=== PATIENT | male | born 1995 | race African-American/Black ===

== ENCOUNTER 2016-11-06 20:47 | Emergency (ER) | payer MEDICAID, OTHER ==
[~2016-11-06] VITALS: Ht 177.8 cm; Wt 122.5 kg
[~2016-11-06 20:47] MED LIST: IBUPROFEN800 MG ORAL; NAPROSYN500 M1 PO; NEOSPORIN ANT14.2 GM TP; NKM
[2016-11-06 21:15] VITALS: BP 131/82
[2016-11-06] MEDS ORDERED: AZITHROMYCIN250 MG ORAL (21:15)
[2016-11-06] MEDS ORDERED: NEXAFED30 MG ORAL (21:15)
--- NOTE | 2016-11-06 21:15 | Emergency Room Report ---
History of Present Illness General Chief Complaint: Sore Throat Source: Patient Present Illness HPI Is a 21-year-old male with no past history. He presents with chief complaint of sore throat and ear pain. Has been ongoing for the last week. Fever initially. Also with congestion. No cough. Pain is 7/10. Worse with swallowing. Allergies: Coded Allergies: No Known Allergies (Unverified , 04/03/14) Patient History Past Medical History: none, see triage record, old chart reviewed Past Surgical History: none Pertinent Family History: none Social History: Denies: drug use Immunizations: other Reviewed Nursing Documentation: PMH: Agreed, PSxH: Agreed Nursing Documentation-PMH Past Medical History: No Stated History Review of Systems Eye: Denies: blurred vision, eye pain ENT: Reports: ear pain, nose congestion, throat pain, throat swelling Respiratory: Denies: cough, shortness of breath Cardiovascular: Denies: chest pain, palpitations Gastrointestinal: Denies: abdominal pain, diarrhea, nausea, vomiting Musculoskeletal: Denies: back pain, joint pain Skin: Denies: rash Neurological: Denies: headache, numbness Endocrine: Denies: increased thirst, increased urine Hematologic/Lymphatic: Denies: easy bruising All Other Systems: negative except mentioned in HPI Physical Exam Vital Signs Date Time Temp Pulse Resp B/P Pulse Ox O2 Delivery O2 Flow Rate FiO2 11/06/16 20:57 99.7 79 18 131/82 96 Room Air vitals with low-grade fever Sp02 EP Interpretation: reviewed, normal General Appearance: well appearing, no apparent distress, alert Head: normocephalic, atraumatic Eyes: bilateral eye EOMI, bilateral eye PERRL ENT: hearing grossly normal, uvula midline - Uvula enlarged, tonsillar swelling , pharyngeal erythema, tonsillar exudate, other - Right TM is dull with effusion Neck: full range of motion, supple, no meningismus Respiratory: chest non-tender, lungs clear, normal breath sounds Cardiovascular #1: regular rate, rhythm, no murmur Gastrointestinal: normal bowel sounds, non tender, no mass, no organomegaly, no bruit, non-distended Musculoskeletal: back normal, gait/station normal, normal range of motion Psychiatric: mood/affect normal Skin: warm/dry Medical Decision Making Diagnostic Impression: Primary Impression: Pharyngitis, acute Qualified Codes: J02.9 - Acute pharyngitis, unspecified Additional Impression: Right otitis media with effusion ER Course Is presents with sore throat. This initially he probably started as a viral illness now complicated by right otitis media. We'll put him on antibiotics. No evidence of sepsis, peritonsillar abscess, retropharyngeal abscess or Adi angina. We'll discharge him. Last Vital Signs Date Time Temp Pulse Resp B/P Pulse Ox O2 Delivery O2 Flow Rate FiO2 11/06/16 20:57 99.7 79 18 131/82 96 Room Air Status: improved Disposition: HOME, SELF-CARE Condition: Stable Scripts Azithromycin* (ZITHROMAX*) 250 Mg Tablet 250 MG ORAL DAILY, #6 TAB 0 Refills Take two tablets by mouth today, then take one tablet by mouth daily for four days Prov: NEVA HUTCHISON M.D. 11/06/16 Pseudoephedrine Hcl* (NEXAFED*) 30 Mg Tablet 60 MG ORAL Q6H Y for congestion, #30 TAB Prov: NEVA HUTCHISON M.D. 11/06/16 Patient Instructions: Tonsillitis Additional Instructions: Followup with your Dr. in 3-5 days. Return if symptom worsen. NEVA HUTCHISON M.D. November 06, 2016 21:15
[2016-11-06 21:21] VITALS: BP 131/82
== END 2016-11-06 21:21 | disposition home or self-care (01) ==
LOC: EMR 21:04
DX: J02.9 Acute pharyngitis, unspecified (principal); H66.91 Otitis media, unspecified, right ear
CPT/HCPCS: 99284

== ENCOUNTER 2019-05-07 19:24 | Emergency (ER) | payer OTHER ==
[~2019-05-07] VITALS: Ht 175.3 cm; Wt 120.2 kg
[~2019-05-07 19:24] MED LIST changes: +AZITHROMYCIN250 MG ORAL; +NEXAFED30 MG ORAL
--- NOTE | 2019-05-07 19:59 | NUR ---
ER Nurse Note: Pt ambulated c/o dry cough without mucus production, nasal congestion, and chest pain with cough since 05/06. No fever; lung sounds clear. Will continue to montior.
[2019-05-07 20:00] VITALS: BP 128/81
--- NOTE | 2019-05-07 20:21 | Emergency Room Report ---
History of Present Illness General Chief Complaint: Upper Respiratory Illness Source: Patient Present Illness HPI 23 YO Male presents to the ED C/O 02/02 in severity persistent painful dry cough with wheezing and sore throat x 2 days. Pt. reports fevers and chills yesterday. Pt. denies mucus production. He reports red eyes, denies visual changes, photophobia or increased lacrimation. He denies eye pain. He reports some mild ST pain exacerbation with swallowing. He states his cough is his primary symptom and is keeping him up at night. He reports sharp pain on the right side of the ribs when coughing. He denies recent travel, calf pain, LE swelling, Palpitations, Dizziness, MUJ[place], neck pain /stiffness, or hemoptysis. He denies significant past medical history and denies smoking or history of asthma/ COPD. He denies cardiac history. He reports his girlfriend has similar symptoms. Allergies: Coded Allergies: No Known Allergies (Unverified , 04/03/14) Patient History Past Medical History: see triage record Past Surgical History: none Pertinent Family History: none Reviewed Nursing Documentation: PMH: Agreed; PSxH: Agreed Nursing Documentation-PMH Past Medical History: No Stated History Review of Systems All Other Systems: negative except mentioned in HPI Physical Exam Vital Signs Date Time Temp Pulse Resp B/P (MAP) Pulse Ox O2 Delivery O2 Flow Rate FiO2 05/07/19 19:28 99.3 105 18 128/81 (97) 96 Room Air Sp02 EP Interpretation: reviewed, normal General Appearance: no apparent distress, alert, GCS 15, non-toxic Head: normocephalic, atraumatic Eyes: bilateral eye normal inspection, bilateral eye PERRL ENT: hearing grossly normal, normal voice Neck: full range of motion, no meningismus, no bony tend Respiratory: chest non-tender, lungs clear, normal breath sounds, no respiratory distress, no accessory muscle use, speaking full sentences, wheezing - scant wheezes diffusely on exhalation Cardiovascular #1: regular rate, rhythm, no edema, normal capillary refill Musculoskeletal: gait/station normal, normal range of motion, non-tender Neurologic: alert, oriented x3, responsive, motor strength/tone normal, sensory intact, normal gait, speech normal, grossly normal Psychiatric: judgement/insight normal Skin: no rash, normal color Lymphatic: no adenopathy Medical Decision Making PA Attestation Dr. Velazco is my supervising Physician whom patient management has been discussed with. Diagnostic Impression: Primary Impression: Bronchitis ER Course 23 YO Male presents to the ED C/O 02/02 in severity persistent painful dry cough with wheezing and sore throat x 2 days. Pt. reports fevers and chills yesterday. Pt. denies mucus production. He reports red eyes, denies visual changes, photophobia or increased lacrimation. He denies eye pain. He reports some mild ST pain exacerbation with swallowing. He states his cough is his primary symptom and is keeping him up at night. He reports sharp pain on the right side of the ribs when coughing. He denies recent travel, calf pain, LE swelling, Palpitations, Dizziness, MUJICA, neck pain /stiffness, or hemoptysis. He denies significant past medical history and denies smoking or history of asthma/ COPD. He denies cardiac history. He reports his girlfriend has similar symptoms. Ddx considered but are not limited to URI, pneumonia, PE, strep pharyngitis, meningitis. Vital signs: mild tachycardic 105 and temp of 99.5, normal oxygen saturation. H&PE are most consistent with bronchitis--I do not suspect acute cardiac etiology of this patient has no significant risk factors and no personal or familial history of cardiac disease. ORDERS: none required at this time, the diagnosis is clinical ED INTERVENTIONS: -Albuterol Nebs. DISCHARGE: At this time pt. is stable for d/c to home. Will provide printed patient care instructions, and any necessary prescriptions. Care plan and follow up instructions have been discussed with the patient prior to discharge. Last Vital Signs Date Time Temp Pulse Resp B/P (MAP) Pulse Ox O2 Delivery O2 Flow Rate FiO2 05/07/19 20:00 99.3 100 18 128/81 96 Room Air Disposition: HOME, SELF-CARE Condition: Stable Scripts Ibuprofen* (MOTRIN*) 600 Mg Tablet 600 MG ORAL THREE TIMES A DAY, #30 TAB 0 Refills Prov: Sarina Greenberg 05/07/19 Benzonatate* (TESSALON PERLE*) 100 Mg Capsule 100 MG ORAL THREE TIMES A DAY for cough, #30 PERLE Prov: Sarina Greenberg 05/07/19 Albuterol Sulfate* (ALBUTEROL SULFATE MDI*) 8.5 Gm Hfa.aer.ad 2 PUFF INH Q4H, #1 INH 0 Refills Prov: Sarina Greenberg 05/07/19 Codeine/Promethazine Hcl* (PROMETHAZINE-CODEINE SYRUP*) 118 Ml Syrup 5 ML ORAL Q6H PRN for For Cough, #120 ML 0 Refills Prov: Sarina Greenberg 05/07/19 Referrals: MATTHEW FELDMAN,REFERRING (PCP) Patient Instructions: Acute Bronchitis, [id number] Additional Instructions: Take medications as directed. Follow up with a Primary Care Provider in 3-5 days, even if your symptoms have resolved. --Please review list of primary care clinics, if you do not already have a primary care provider Return sooner to ED if new symptoms occur, or current symptoms become worse. Do not drink alcohol, drive, or operate heavy machinery while taking Cough Syrup as this may cause drowsiness. - Please note that this Emergency Department Report was dictated using [employer] bookkeeper technology software, occasionally this can lead to erroneous entry secondary to interpretation by the dictation equipment. Sarina Greenberg May 07, 2019 20:21
--- NOTE | 2019-05-07 20:35 | NUR ---
ED Nurse Note: PT RECEIVING BREATHING TX AT BEDSIDE
[2019-05-07] MEDS: Albuterol ud Inhalation HHN ONE ×2 (20:37→20:38)
[2019-05-07] MEDS ORDERED: IBUPROFEN600 MG ORAL (20:43)
[2019-05-07] MEDS ORDERED: PROMETHAZINE-C118 M1 ORAL (20:43)
[2019-05-07] MEDS ORDERED: ALBUTEROL SULF8.5 GM INH (20:43)
[2019-05-07] MEDS ORDERED: TESSALON PERLE100 MG ORAL (20:43)
[2019-05-07 20:51] VITALS: BP 130/80
--- NOTE | 2019-05-07 20:51 | NUR ---
ER DISCHARGE NOTE: Patient is cleared to be discharged per ERMD, pt is aox4, on room air, with stable vital signs. pt was given dc and prescription instructions, pt was able to verbalize understanding, pt id band removed without complications. pt is able to ambulate with steady gait. pt took all belongings.
== END 2019-05-07 20:51 | disposition home or self-care (01) ==
LOC: EMR 19:45
DX: J20.9 Acute bronchitis, unspecified (principal); R07.89 Other chest pain; R00.0 Tachycardia, unspecified
CPT/HCPCS: 94640; 94664; Z7502; 99284

== ENCOUNTER 2020-05-06 19:10 | Emergency (ER) | payer OTHER ==
[~2020-05-06] VITALS: Ht 175.3 cm; Wt 114.3 kg
[~2020-05-06 19:10] MED LIST changes: +ALBUTEROL SULF8.5 GM INH; +IBUPROFEN600 MG ORAL; +PROMETHAZINE-C118 M1 ORAL; +TESSALON PERLE100 MG ORAL
[2020-05-06] MEDS ORDERED: Penicillin Vk 250mg tab ORAL ONE (19:30)
[2020-05-06] MEDS ORDERED: Lidocaine 2% Visc 15ml soln ORAL ONE (19:30)
[2020-05-06] MEDS ORDERED: PENICILLIN V P500 MG PO (19:31)
[2020-05-06] MEDS ORDERED: IBUPROFEN600 M1 ORAL (19:31)
[2020-05-06] MEDS ORDERED: DEXAMETHASONE2 MG PO (19:32)
--- NOTE | 2020-05-06 19:35 | NUR ---
ED Nurse Note: Recieved pt on [facility] awake, alert and oriented x 4, pt herre with c/o sore throat, pt states he has hx of needing tonsils removed but did not f/u, pt denies fevers but states pain is radiating to left ear, pain at 5/10, denies cp or sob or any other complaints or discomforts.
--- NOTE | 2020-05-06 19:40 | Emergency Room Report ---
History of Present Illness General Chief Complaint: Sore Throat Source: Patient Present Illness HPI Patient is a 24-year-old male past medical history of tonsillitis in the past who presents to the ER complaining of throat pain for 2 days. Patient states that it is painful to swallow. He states that he is not drooling and does not have changes to his voice. Patient denies any neck stiffness or rash. He de nies any chest pain or shortness of breath. He denies any cough. He complains of some discomfort to his right ear. Allergies: Coded Allergies: No Known Allergies (Unverified , 04/03/14) COVID-19 Screening Contact w/high risk pt: No Experienced COVID-19 symptoms?: No COVID-19 Testing performed BASEBALL HAND SEWER: No Patient History Reviewed Nursing Documentation: PMH: Agreed; PSxH: Agreed Nursing Documentation-PMH Past Medical History: No Stated History Review of Systems All Other Systems: negative except mentioned in HPI Physical Exam Vital Signs Date Time Temp Pulse Resp B/P (MAP) Pulse Ox O2 Delivery O2 Flow Rate FiO2 05/06/20 19:19 98.8 78 16 121/60 (80) 98 Room Air Sp02 EP Interpretation: reviewed, normal General Appearance: no apparent distress, alert, GCS 15, non-toxic Head: normocephalic, atraumatic Eyes: bilateral eye normal inspection, bilateral eye PERRL ENT: no angioedema, TMs + canals normal, uvula midline, other - Bilateral tonsillar swelling and tonsillar exudate no peritonsillar abscess Neck: no meningismus, other - Cervical lymphadenopathy Respiratory: chest non-tender, lungs clear, normal breath sounds, speaking full sentences Cardiovascular #1: regular rate, rhythm, no edema Gastrointestinal: normal bowel sounds, non tender, soft, non-distended, no guarding, no rebound Rectal: deferred Musculoskeletal: normal range of motion Neurologic: transmission specialist III-XII nml as tested, oriented x3 Psychiatric: no suicidal/homicidal ideation Skin: no rash Lymphatic: no adenopathy Medical Decision Making Diagnostic Impression: Primary Impression: Pharyngitis ER Course Patient given 10 mg of oral Decadron, penicillin VK 500 mg, 60 mg of Motrin and viscous lidocaine. Patient had no difficulty swallowing these pills. He has been given been a prescription for Decadron, penicillin and Motrin as an outpatient. Patient has no peritonsillar abscess. After discussing risks and benefits of further diagnostics, treatment plans, as well as indications for and risks of admission, the patient is agreeable to being discharged home. I have explained that their evaluation and treatment in the emergency department today is an important step towards them achieving better health but that their evaluation today is not intended to replace further evaluation and treatment by a physician in their local clinic. I have explained that while the current findings suggest no immediate life threatening emergency they will require further evaluation and treatment by a physician of their choice in their area. They understand that it will be necessary for them to review the final reports of their ED visit with their clinic physician. We have reviewed indications for return to the Emergency Department. I have explained that additional time may need to pass and/or additional testing as an outpatient may be necessary before a definitive diagnosis can be made. They tell me they are willing to follow up as instructed within the timeframe I recommend. They appear to understand what we discussed. Additionally they understand that if they are unable to be seen by an outpatient physician they are welcome, and in fact should, return to the Emergency Department for a repeat evaluation. The patient is stable at time of discharge. Last Vital Signs Date Time Temp Pulse Resp B/P (MAP) Pulse Ox O2 Delivery O2 Flow Rate FiO2 05/06/20 19:19 98.8 78 16 121/60 (80) 98 Room Air Disposition: HOME, SELF-CARE Condition: Stable Scripts Dexamethasone* (DECADRON*) 2 Mg Tablet 10 MG PO DAILY for 3 Days, TAB Prov: Nelida Figueroa M.D. 05/06/20 Penicillin V Potassium* (PENVK*) 500 Mg Tablet 500 MG PO Q6H for 10 Days, TAB 0 Refills Prov: Nelida Figueroa M.D. 05/06/20 Ibuprofen* (MOTRIN*) 600 Mg Tablet 600 MG ORAL FOUR TIMES A DAY, #30 TAB 0 Refills Prov: Nelida Figueroa M.D. 05/06/20 Referrals: [facility] Patient Instructions: Tonsillitis Additional Instructions: The patient was provided with discharge instructions, notified to follow-up with a primary care doctor and or specialist in the next 24-48 hours, and to return to the ED if they have worsening of their symptoms. Please note that this report is being documented using [employer] technology. This can lead to erroneous entry secondary to incorrect interpretation by the d ictating instrument. Nelida Figueroa M.D. May 06, 2020 19:40
[2020-05-06 20:15] VITALS: BP 129/68
== END 2020-05-06 20:25 | disposition home or self-care (01) ==
LOC: EMR 19:30
DX: J02.9 Acute pharyngitis, unspecified (principal)
CPT/HCPCS: J8540; Z7502; 99282; C9399